=== PATIENT | male | born 1965 | race Caucasian/White ===

== ENCOUNTER 2018-01-10 09:24 | Inpatient (IN) | payer SELFPAY ==
[~2018-01-10] VITALS: Ht 182.9 cm; Wt 161.4 kg
[2018-01-10 09:31] VITALS: Ht 182.9 cm; Wt 161.4 kg
[2018-01-10 10:07] LABS: BASOPHIL % 1.5 % (0-2); PLATELET COUNT 324 x10^3mcL (130-400)
[2018-01-10 10:21] LABS: CALCIUM 8.2 mg/dL (8.5-10.1); CHLORIDE SERUM 104 mmol/L (98-107); CREATININE SERUM 0.9 mg/dL (0.7-1.3); GFR1 > 60 mL/min; GLUCOSE SERUM 111 mg/dL (74-106); SODIUM SERUM 139 mmol/L (136-145)
[2018-01-10 10:27] LABS: RED CELL DISTRIBUTION WIDTH 15.3 % (11.5-14.5)
[2018-01-10 10:30] LABS: FREE T4 1.18 ng/dL (0.76-1.46); FREE THYROXINE INDEX 2.8 ug/dL (1.4-4.5); T4(THYROXINE) 8.4 ug/dL (4.7-13.3)
[2018-01-10 10:41] LABS: ALKALINE PHOSPHATASE 93 U/L (46-116); ALT/SGPT 30 U/L (16-63); AST/SGOT 14 U/L (15-37); BILIRUBIN TOTAL 0.6 mg/dL (0.20-1.00); HDL CHOLESTEROL 29 mg/dL (40-60); LIPASE 70 IU/L (73-393); TOTAL PROTEIN, SERUM 7.3 g/dL (6.4-8.2)
[2018-01-10 10:43] LABS: CHOLESTEROL 202 mg/dL (<200); TRIGLYCERIDES 87 mg/dL (<150)
[2018-01-10 11:42] LABS: T3 TOTAL 1.39 ng/mL
[2018-01-10 13:20] VITALS: BP 125/78
[2018-01-10 13:55] LABS: CALCIUM 8.8 mg/dL (8.5-10.1); CHLORIDE SERUM 103 mmol/L (98-107); CREATININE SERUM 1.2 mg/dL (0.7-1.3); GFR1 > 60 mL/min; GLUCOSE SERUM 156 mg/dL (74-106); MAGNESIUM 1.9 mg/dL (1.8-2.4); PHOSPHOROUS 3.2 mg/dL (2.5-4.9); SODIUM SERUM 140 mmol/L (136-145)
[2018-01-10 13:56] LABS: AMYLASE 21 U/L (25-115)
[2018-01-10 16:14] VITALS: BP 136/79
[2018-01-10 16:51] LABS: UA SPECIFIC GRAVITY 1.025 (1.005-1.035); microscopic required? YES; urine erythrocyte 1+ (NEGATIVE)
[2018-01-10 17:01] LABS: AMPHETAMINE QUAL UR NONE DETECTED (See below)
[2018-01-10 22:15] VITALS: BP 132/83
[2018-01-11 05:14] VITALS: BP 103/71
[2018-01-11 12:24] VITALS: BP 103/71
[2018-01-11 12:59] VITALS: BP 107/76
[2018-01-11 17:28] VITALS: BP 114/79
[2018-01-11 19:15] VITALS: BP 122/71
[2018-01-12 05:16] VITALS: BP 96/55
[2018-01-12 05:36] LABS: AMYLASE 25 U/L (25-115); CALCIUM 8.8 mg/dL (8.5-10.1); CARBON DIOXIDE 30.2 mmol/L (21-32); CHLORIDE SERUM 102 mmol/L (98-107); CREATININE SERUM 1.3 mg/dL (0.7-1.3); GFR1 > 60 mL/min; GLUCOSE SERUM 126 mg/dL (74-106); LIPASE 86 IU/L (73-393); PHOSPHOROUS 4.6 mg/dL (2.5-4.9); POTASSIUM SERUM 4.1 mmol/L (3.5-5.1); SODIUM SERUM 141 mmol/L (136-145)
[2018-01-12 05:40] LABS: BASOPHIL % 0.4 % (0-2); PLATELET COUNT 301 x10^3mcL (130-400)
[2018-01-12 06:26] LABS: RED CELL DISTRIBUTION WIDTH 15.1 % (11.5-14.5)
[2018-01-12] MEDS ORDERED: LIPI10 PO (07:45)
[2018-01-12] MEDS ORDERED: CARVEDILOL25 M1 PO (07:45)
[2018-01-12] MEDS ORDERED: ZES10 PO (07:46)
[2018-01-12] MEDS ORDERED: ASPIRIN ADULT L81 M5 PO (07:46)
[2018-01-12] MEDS ORDERED: LASIX40 MG PO (07:48)
[2018-01-12] MEDS ORDERED: COLACE100 MG PO (07:49)
[2018-01-12] MEDS ORDERED: LAC PO (07:50)
[2018-01-12] MEDS ORDERED: EPZICOM1 TAB PO (07:50)
[2018-01-12] MEDS ORDERED: LEVAQUIN500 M1 PO (07:53)
[2018-01-12] MEDS ORDERED: FLA500 PO (07:53)
[2018-01-12 08:30] VITALS: BP 129/82
[2018-01-12 13:21] VITALS: BP 131/70
== END 2018-01-12 15:20 | disposition home or self-care (01) | DRG 291 ==
LOC: ED 09:24 → DU 10:54
PROVIDERS: General Practice; Specialist
DX: I11.0 Hypertensive heart disease with heart failure (principal); J69.0 Pneumonitis due to inhalation of food and vomit; Z68.42 Body mass index [BMI] 45.0-49.9, adult; E11.9 Type 2 diabetes mellitus without complications; E78.5 Hyperlipidemia, unspecified; Z72.0 Tobacco use; I50.9 Heart failure, unspecified; Z90.81 Acquired absence of spleen; Z90.49 Acquired absence of other specified parts of digestive tract; Z96.652 Presence of left artificial knee joint
CPT/HCPCS: 83880; 84439; J1940; J2543; J7030; J7040; J7620; Q0092